=== PATIENT | female | born 1985 | race African-American/Black ===

== ENCOUNTER 2016-07-07 18:12 | Emergency (ER) | payer MEDICAID ==
[2016-07-07] MEDS ORDERED: METOCLOPRAMIDE 10 MG/2 ML VIAL ONE (21:14)
[2016-07-07] MEDS ORDERED: SODIUM CHLORIDE 0.9% 1,000 ML ONE (21:15)
[2016-07-07] MEDS ORDERED: DIPHENHYDRAMINE 50 MG/ML VIAL ONE (21:15)
[2016-07-07] MEDS ORDERED: ACETAMINOPHEN 325 MG TAB ONE (21:15)
== END 2016-07-07 22:21 | disposition home or self-care (01) ==
LOC: ER 18:12
CPT/HCPCS: 87880; 96361; 96374; 96375

== ENCOUNTER 2016-07-19 07:09 | Inpatient (IN) | payer BC, MEDICAID ==
[~2016-07-19] VITALS: Ht 152.4 cm; Wt 83.9 kg
[2016-07-19] VITALS (15 sets, daily range): BP systolic 93–121; RESP 16–26; TEMP 97.5–97.8; Ht 152.4 cm; Wt 83.9 kg
[2016-07-19] MEDS ORDERED: Flu Vaccine Quadrivalent 60 MCG/0.5 ML IM.VACC ONE (07:35)
[2016-07-19] MEDS ORDERED: CEFAZOLIN (LD/OB) 100 ML IV ONE (07:40)
[2016-07-19] MEDS ORDERED: METOCLOPRAMIDE 10 MG/2 ML VIAL IV PUSH ONE (07:40)
[2016-07-19] MEDS ORDERED: FAMOTIDINE 20 MG INJ IV ONE (07:40)
[2016-07-19] MEDS: LACT RINGERS 1,000 ML IV SCH ×2 (09:07→17:43)
[2016-07-19] MEDS ORDERED: NALOXONE 0.4 MG/ML AMP IV PRN (09:40)
[2016-07-19] MEDS ORDERED: SALINE FLUSH 10 ML FLUSH PRN (09:40)
[2016-07-19] MEDS ORDERED: DIPHENHYDRAMINE 50 MG/ML VIAL IV PRN (09:40)
[2016-07-19] MEDS ORDERED: PROMETHAZINE 25 MG/ML VIAL IV PRN (09:40)
[2016-07-19] MEDS ORDERED: ONDANSETRON 4 MG VIAL IV PRN ×3 (09:40→10:00)
[2016-07-19] MEDS ORDERED: OXYCODONE 5 MG TAB PO PRN (09:40)
[2016-07-19] MEDS ORDERED: BUTORPHANOL 1 MG/ML VIAL IV PRN (09:40)
[2016-07-19] MEDS ORDERED: DILAUDID 1 MG/ML AMP IV PRN (09:40)
[2016-07-19] MEDS ORDERED: MEPERIDINE 25 MG/ML IV PRN (09:40)
[2016-07-19] MEDS ORDERED: ONDANSETRON 4 MG VIAL IV PUSH PRN (10:00)
[2016-07-19] MEDS ORDERED: OXYTOCIN 15 UNITS/250 ML NS 250 ML IV SCH (10:00)
[2016-07-19] MEDS ORDERED: TDaP 0.5 ML VIAL IM.VACC ONE (10:00)
[2016-07-19] MEDS ORDERED: LACT RINGERS 1,000 ML IV SCH (10:00)
[2016-07-19] MEDS ORDERED: MAG HYDROX 30 ML UDC PO PRN (10:00)
[2016-07-19] MEDS ORDERED: MEPERIDINE 25 MG/ML IM PRN (10:00)
[2016-07-19] MEDS ORDERED: KETOROLAC 30 MG/ML VIAL IV PRN (10:00)
[2016-07-19] MEDS ORDERED: MEPERIDINE 50 MG/ML IM PRN (10:00)
[2016-07-19] MEDS ORDERED: MEASLES,MUMPS,RUBELLA VAC SUBQ.VACC ONE (10:00)
[2016-07-19] MEDS ORDERED: PROMETHAZINE 25 MG/ML VIAL IM PRN (10:00)
[2016-07-19] MEDS ORDERED: KETOROLAC 30 MG/ML VIAL IV ONE (10:02)
[2016-07-19] MEDS ORDERED: PHENYLEPHRINE 10 MG/ML VIAL IV ONE (10:02)
[2016-07-19] MEDS ORDERED: MIDAZOLAM 2 MG/2 ML INJ IV ONE (10:02)
[2016-07-19] MEDS ORDERED: ONDANSETRON 4 MG VIAL IV PUSH ONE (10:02)
[2016-07-19] MEDS ORDERED: OXYTOCIN 10 UNITS/ML VIAL IV ONE (10:02)
[2016-07-19] MEDS ORDERED: FENTANYL 100 MCG/2 ML AMP IV ONE (10:02)
[2016-07-19] MEDS: KETOROLAC 30 MG/ML VIAL IV SCH ×3 (12:16→23:40)
[2016-07-19] MEDS: SALINE FLUSH 10 ML FLUSH SCH (20:00)
[2016-07-19] MEDS: OXYCODONE/APAP 5/325 TAB PO PRN (20:48)
[2016-07-20 02:24] VITALS: BP_SYST 101; RESP 16; TEMP 97.9
[2016-07-20] MEDS: OXYCODONE/APAP 5/325 TAB PO PRN ×3 (02:40→20:05)
[2016-07-20 05:21] VITALS: BP_SYST 106; TEMP 97.7
[2016-07-20 05:22] VITALS: RESP 8
[2016-07-20] MEDS: KETOROLAC 30 MG/ML VIAL IV SCH (05:57)
[2016-07-20] MEDS ORDERED: SODIUM CHLORIDE 0.9% FLUSH BAG 500 ML IV SCH (06:00)
[2016-07-20] MEDS: SALINE FLUSH 10 ML FLUSH SCH ×2 (08:00→16:29)
[2016-07-20] MEDS: DOCUSATE SOD 100 MG CAP PO SCH (08:27)
[2016-07-20 09:09] VITALS: BP_SYST 114; TEMP 97.9
[2016-07-20 09:10] VITALS: RESP 16
[2016-07-20] MEDS ORDERED: TDaP 0.5 ML VIAL IM.VACC ONE (16:00)
[2016-07-20] MEDS: Ibuprofen 800 MG TAB PO SCH ×2 (16:03→23:35)
[2016-07-20 18:28] VITALS: BP_SYST 106; RESP 18; TEMP 97.8
[2016-07-21 06:22] VITALS: BP_SYST 113; RESP 18; TEMP 98.3
[2016-07-21] MEDS: OXYCODONE/APAP 5/325 TAB PO PRN (06:50)
[2016-07-21] MEDS: DOCUSATE SOD 100 MG CAP PO SCH (08:08)
[2016-07-21] MEDS: Ibuprofen 800 MG TAB PO SCH (08:08)
[2016-07-21 09:28] VITALS: BP_SYST 112
[2016-07-21 09:29] VITALS: RESP 18; TEMP 98.1
[2016-07-21 13:30] VITALS: BP_SYST 107; TEMP 98
[2016-07-21 13:31] VITALS: RESP 18
[2016-07-21 13:46] VITALS: BP_SYST 107; RESP 18; TEMP 98
== END 2016-07-21 14:55 | disposition home or self-care (01) | DRG 766 ==
LOC: LD 07:09 → OB 12:20
PROVIDERS: ADMIT Obstetrics & Gynecology; ATTEND Obstetrics & Gynecology
PROC: 10D00Z1 Extraction of Products of Conception, Low, Open Approach (ICD-10-PCS; principal; 2016-07-19)
DX: O34.219 Maternal care for unspecified type scar from previous cesarean delivery (principal); Z37.0 Single live birth; Z3A.39 39 weeks gestation of pregnancy
CPT/HCPCS: 80053; 85025